=== PATIENT | male | born 1985 | race Caucasian/White ===

== ENCOUNTER 2018-03-19 19:07 | Observation (INO) | payer BC ==
--- NOTE | 2018-03-19 19:24 | EDPHY ---
H & P Stated Complaint: c/o n/v/d starting this am on waking, arrives with fever Time Seen by Provider: 03/19/18 19:23 - Medical/Surgical History Hx Asthma: No Hx Chronic Respiratory Disease: No Hx Diabetes: No Hx Cardiac Disease: No Hx Renal Disease: Yes Hx Cirrhosis: No Hx Alcoholism: No Hx HIV/AIDS: No Hx Splenectomy or Spleen Trauma: No Other PMH: polycystic kidney disease - L kidney transplant, lymphoma, ptld, hypertension, gout - Social History Smoking Status: Never smoked Constitutional: Initial Vital Signs Temperature (C) 38.2 C 03/19/18 19:15 Heart Rate 125 H 03/19/18 19:15 Respiratory Rate 16 03/19/18 19:15 Blood Pressure 99/64 L 03/19/18 19:15 O2 Sat (%) 96 03/19/18 19:15 O2 Delivery Mode Room Air Allergies/Adverse Reactions: avocado Allergy (Verified 03/19/18 19:20) Penicillins Allergy (Verified 03/19/18 19:20) Home Medications: Medication Instructions Recorded Colchicine 03/19/18 Prednisone 03/19/18 Prograf 03/19/18 Rocaltrol 03/19/18 Medical Decision Making ED Course/Re-evaluation: CHIEF COMPLAINT: Nausea, vomiting, diarrhea HISTORY OF PRESENT ILLNESS: The patient is a 32 y/o male with a history of polycystic kidney disease requiring a left kidney transplant complaining of nausea, vomiting, diarrhea onset 09:30, 10 hours ago while in [place], [place]. Since developing his symptoms he has developed a fever. He stopped vomiting around 12:30 and began drinking fluids around 13:00. However, he has not urinated for several hours and became concerned as he has a kidney transplant. Due to the dehydration he decided to present to the emergency department. He denies any nausea or abdominal pain currently. He denies missing any doses of his anti-rejection medications. No headache, chest pain, shortness of breath, abdominal pain, bowel complaints, numbness, paresthesias. REVIEW OF SYSTEMS: A 10 point review of systems was performed and is negative with the exception of the elements mentioned in the history of present illness. PHYSICAL EXAM: HR, BP, O2 Sat, RR. Temp noted General Appearance: Alert, well hydrated, appropriate, and non-toxic appearing. Head: Atraumatic without scalp tenderness or obvious injury Eyes: Pupils equal, round, reactive to light and accommodation, EOMI, no trauma , no injection. Ears: Clear bilaterally, no perforation, normal landmarks Nose: Atraumatic, no rhinorrhea, clear. Throat: There is no erythema or exudates, no lesions, normal tonsils, mucus membranes moist. Neck: Supple, 2+ carotid upstroke, nontender, no lymphadenopathy. Respiratory: No retractions, no distress, no wheezes, and no accessory muscle use. Lungs are clear to auscultation bilaterally. Cardiovascular: Regular rate and rhythm, no murmurs, rubs, or gallops. Bilateral carotid, radial, dorsalis pedis, and posterior tibial pulses intact. Good capillary refill all extremities. Gastrointestinal: Abdomen is soft, nontender, non-distended, no masses, no rebound, no guarding, no peritoneal signs. Musculoskeletal: Normal active ROM of all extremities, atraumatic. Neurological: Alert, appropriate, and interactive. The patient has normal DTRs and non-focal cranial nerves, motor, sensory, and cerebellar exam. Skin: No rashes, good turgor, no nodules on palpation. Past medical history: Polycystic kidney disease, lymphoma, hypertension, gout Past surgical history: Left kidney transplant (22 years ago) Family history: Denies Social history: at bedside, lives in [place], employed DIAGNOSTICS/PROCEDURES/CRITICAL CARE TIME: Renal US: Pending at time of admission and shift change DIFFERENTIAL DIAGNOSIS: The differential diagnosis for the patient's nausea and vomiting included but was not limited to acute kidney injury, gastroenteritis, gastritis, appendicitis , and medication side effect. MEDICAL DECISION MAKING: The patient is a 32 y/o male with a history of polycystic kidney disease requiring a left kidney transplant complaining of nausea, vomiting, diarrhea, and lack of urination onset 09:30, 10 hours ago while in [place]. Starting at 13:00 he was able to drink fluids again. He is concerned that he is too dehydrated with a history of the kidney transplant. He has a normal physical exam. Labs ordered; 2L IV NS administered. 1939: Patient's creatinine is 3.3; I reassessed patient and discussed this level. He reports that his creatinine normally runs 1.6-1.7; he was just at his neurological physiotherapist 6 weeks. ago. 1942: I consulted with Dr. Fitzpatrick, hospitalist, regarding this patient. 2044: Patient continues to feel better but he has still not urinated; repeat labs ordered. 2051: Patient's creatinine is 3.1; renal US ordered and I will consult nephrology. 2055: I consulted with Dr. Alvarado, neurological physiotherapist, regarding this patient; she agrees to follow this patient during his admission. Additional labs ordered; patient will remain on NS. 2099: Reassessed patient and discussed laboratory studies as well as plan for admission. He is comfortable with plan for admission. 2101: I consulted with the hospitalist service, Dr. Fitzpatrick accepts admission of this patient. - Data Points Laboratory Results: 03/19/18 03/19/18 20:51 19:38 POC Hgb 13.9 gm/dL gm/dL 17.0 gm/dL gm/dL (13.7-17.5) (13.7-17.5) POC Hct 41 % % 50 % % (40-51) (40-51) POC Sodium 140 mEq/L mEq/L 139 mEq/L mEq/L (135-145) (135-145) POC Potassium 4.8 mEq/L mEq/L 4.8 mEq/L mEq/L (3.3-5.0) (3.3-5.0) POC Chloride 108 mEq/L mEq/L 106 mEq/L mEq/L (97-110) (97-110) POC BUN 31 mg/dL H mg/dL 34 mg/dL H mg/dL (7-23) (7-23) POC Creatinine 3.1 mg/dL H mg/dL 3.3 mg/dL H mg/dL (0.7-1.3) (0.7-1.3) POC Glucose 123 mg/dL H mg/dL 138 mg/dL H mg/dL (70-100) (70-100) Medications Given: Discontinued Medications Sodium Chloride (Ns) 1,000 mls @ 0 mls/hr IV EDNOW ONE; Wide Open PRN Reason: Protocol Stop: 03/19/18 19:34 Last Admin: 03/19/18 19:37 Dose: 1,000 mls Sodium Chloride (Ns) 1,000 mls @ 0 mls/hr IV EDNOW ONE; Wide Open PRN Reason: Protocol Stop: 03/19/18 19:34 Last Admin: 03/19/18 19:38 Dose: 1,000 mls Point of Care Test Results: Chemistry 03/19/18 03/19/18 20:51 19:38 POC Sodium 140 mEq/L mEq/L 139 mEq/L mEq/L (135-145) (135-145) POC Potassium 4.8 mEq/L mEq/L 4.8 mEq/L mEq/L (3.3-5.0) (3.3-5.0) POC Chloride 108 mEq/L mEq/L 106 mEq/L mEq/L (97-110) (97-110) POC BUN 31 mg/dL H mg/dL 34 mg/dL H mg/dL (7-23) (7-23) POC Creatinine 3.1 mg/dL H mg/dL 3.3 mg/dL H mg/dL (0.7-1.3) (0.7-1.3) POC Glucose 123 mg/dL H mg/dL 138 mg/dL H mg/dL (70-100) (70-100) ISTAT H&H 03/19/18 03/19/18 20:51 19:38 POC Hgb 13.9 gm/dL gm/dL 17.0 gm/dL gm/dL (13.7-17.5) (13.7-17.5) POC Hct 41 % % 50 % % (40-51) (40-51) Departure - Departure Disposition: [facility] Inpatient Acute Clinical Impression: Acute kidney injury, Dehydration Condition: Fair Referrals: NONE *PRIMARY CARE P,. [Primary Care Provider] - As per Instructions Report Scribed for: Rajesh Jasso Report Scribed by: Edith Chan Date of Report: 03/19/18 Time of Report: 19:45
--- NOTE | 2018-03-19 19:25 | EDPHY ---
H & P Stated Complaint: c/o n/v/d starting this am on waking, arrives with fever Time Seen by Provider: 03/19/18 19:23 - Medical/Surgical History Hx Asthma: No Hx Chronic Respiratory Disease: No Hx Diabetes: No Hx Cardiac Disease: No Hx Renal Disease: Yes Hx Cirrhosis: No Hx Alcoholism: No Hx HIV/AIDS: No Hx Splenectomy or Spleen Trauma: No Other PMH: polycystic kidney disease - L kidney transplant, lymphoma, ptld, hypertension, gout - Social History Smoking Status: Never smoked Constitutional: Initial Vital Signs Temperature (C) 38.2 C 03/19/18 19:15 Heart Rate 125 H 03/19/18 19:15 Respiratory Rate 16 03/19/18 19:15 Blood Pressure 99/64 L 03/19/18 19:15 O2 Sat (%) 96 03/19/18 19:15 O2 Delivery Mode Room Air Allergies/Adverse Reactions: avocado Allergy (Verified 03/19/18 19:20) Penicillins Allergy (Verified 03/19/18 19:20) Home Medications: Medication Instructions Recorded Colchicine 03/19/18 Prednisone 03/19/18 Prograf 03/19/18 Rocaltrol 03/19/18 Medical Decision Making ED Course/Re-evaluation: CHIEF COMPLAINT: HISTORY OF PRESENT ILLNESS: must have 4 elements: Location, Quality, Severity , Duration, Timing, Context, Modifying Factors, Associated Signs and Symptoms REVIEW OF SYSTEMS: A comprehensive 10 system review of systems is otherwise negative aside from elements mentioned in the history of present illness and medical decision making. PHYSICAL EXAM: HR, BP, O2 Sat, RR. Temp noted General Appearance: Alert, well hydrated, appropriate, and non-toxic appearing. Head: Atraumatic without scalp tenderness or obvious injury Eyes: Pupils equal, round, reactive to light and accommodation, EOMI, no trauma , no injection. Ears: Clear bilaterally, no perforation, normal landmarks Nose: Atraumatic, no rhinorrhea, clear. Throat: There is no erythema or exudates, no lesions, normal tonsils, mucus membranes moist. Neck: Supple, 2+ carotid upstroke, nontender, no lymphadenopathy. Respiratory: No retractions, no distress, no wheezes, and no accessory muscle use. Lungs are clear to auscultation bilaterally. Cardiovascular: Regular rate and rhythm, no murmurs, rubs, or gallops. Bilateral carotid, radial, dorsalis pedis, and posterior tibial pulses intact. Good capillary refill all extremities. Gastrointestinal: Abdomen is soft, nontender, non-distended, no masses, no rebound, no guarding, no peritoneal signs. Musculoskeletal: Normal active ROM of all extremities, atraumatic. Neurological: Alert, appropriate, and interactive. The patient has normal DTRs and non-focal cranial nerves, motor, sensory, and cerebellar exam. Skin: No rashes, good turgor, no nodules on palpation. Past medical history: Past surgical history: Family history: Social history: DIAGNOSTICS/PROCEDURES/CRITICAL CARE TIME: DIFFERENTIAL DIAGNOSIS: MEDICAL DECISION MAKING: Departure - Departure Referrals: NONE *PRIMARY CARE P,. [Primary Care Provider] - As per Instructions
[2018-03-19] MEDS ORDERED: NS 1,000 ML IV ONE ×2 (19:33)
[2018-03-19 21:09] LABS: PLATELET COUNT 273 10^3/uL (150-400)
[2018-03-19] MEDS ORDERED: ONDANSETRON 4 MG/2 ML VIAL IVP PRN (21:41)
[2018-03-19] MEDS ORDERED: ONDANSETRON DISINTEGRATING 4 MG TAB PO PRN (21:41)
[2018-03-19] MEDS ORDERED: ACETAMINOPHEN 325 MG TAB PO PRN (21:41)
[2018-03-19] MEDS ORDERED: NS 1,000 ML IV SCH (21:45)
--- NOTE | 2018-03-19 21:57 | HOSPPROG ---
Hospitalist Progress Note Assessment/Plan: patient does not take antihypertensives rocaltrol is a vit d analog dictation in error Objective: Vital Signs Temp Pulse Resp BP Pulse Ox 36.9 C 104 H 14 113/74 96 03/19/18 21:51 03/19/18 21:51 03/19/18 21:51 03/19/18 21:51 03/19/18 21:51 03/18/18 03/19/18 03/20/18 05:59 05:59 05:59 Intake Total 1999 Balance 1999 ICD10 Worksheet Patient Problems: Problems Problem Status Onset Acute kidney injury Acute Dehydration Acute
--- NOTE | 2018-03-19 22:29 | GHP ---
DATE OF ADMISSION: 03/19/2018 HISTORY OF PRESENT ILLNESS: Mr. Gruber is a 32-year-old gentleman with a history of renal transplan t at age 10 secondary to polycystic kidneys, who presents with no urine in several hours. He lives i [facility], he was visiting [place]. He has been eating and drinking well. He developed di arrhea and vomiting this morning. He presented for care because of no urination about 8 hours, found have a BUN and creatinine of 36 and 3.1. His baseline is about 1.4, this was last checked about 6 w eeks ago. He does not take NSAIDs. He is taking no [id number]-[id number] cold and flu medicines. He julia es tacrolimus and prednisone for antirejection drugs and he has not missed doses. His blood pressure is not markedly elevated; in fact, it is a little bit low when he gets here. He does take Rocaltrol for blood pressure control. REVIEW OF SYSTEMS: Complete 10-point review of systems conducted, negative except as noted in the HP I. PAST MEDICAL HISTORY: Polycystic kidney disease, kidney transplant, hypertension, and gout. ALLERGIES: Avocado and penicillin. MEDICATION LIST: Colchicine, prednisone, Prograf, Rocaltrol. SOCIAL HISTORY: He is from [place]. He does not smoke cigarettes, is not a heavy drinker, prese nt with his girlfriend. FAMILY HISTORY: Reviewed and unremarkable. PHYSICAL EXAM: PRESENTING VITAL SIGNS: Temp 38, blood pressure 99/64, pulse 125, now 99, breathing 16 times a minute, 96% on room air. GENERAL: No acute distress sclerae are anicteric. Oropharynx i s clear. Mucous membranes are moist. NECK: Supple, without lymphadenopathy or JVD. LUNGS: Clear to auscultation bilaterally. HEART: S1, S2. ABDOMEN: Soft, nontender, nondistended. LOWER EXTREM ITIES: No edema. The calves are nontender. SKIN: Without rash. NEUROLOGIC: Exam is nonfocal. His kidney transplant at the left lower quadrant is not warm or tender. LABORATORY DATA: Sodium 136, potassium 5.1, chloride 104, bicarb 19, BUN 36, creatinine 3.1. After hydration it was essentially unchanged. There is no imaging. I have discussed the case Dr. Francisco J Jasso. ASSESSMENT AND PLAN: A 32-year-old man with acute kidney injury with chronic kidney disease and joanna l transplant. 1. Acute kidney injury. This is almost certainly secondary to a prerenal state, given his vomiting and diarrhea. That said, the rise in creatinine is a little greater than expected; renal ultrasound is ordered and pending. We will send a tacrolimus level. I have a low risk for toxicity. We will h ydrate gently overnight. He will be seen by Renal in consult in the morning. We will continue his i mmunosuppressives. 2. Fever. This is likely secondary to intermittent viral gastroenteritis. Will follow. Will send a gastrointestinal pathogen panel. 3. Leukocytosis. Again, this is likely secondary to intercurrent infection. 4. Hypertension. We will hold his antihypertensives. Maximize renal perfusion. DISPOSITION: Observation status. /[id number]/MODL
--- NOTE | 2018-03-20 07:34 | SOAPPROG ---
[facility] Progress Note Assessment/Plan: Assessment: renal consult See dictation # [id number] pager [phone] Objective: Vital Signs Temp Pulse Resp BP Pulse Ox 36.5 C 84 14 119/72 94 03/20/18 04:24 03/20/18 04:24 03/20/18 04:24 03/20/18 04:24 03/20/18 04:24 Laboratory Results 03/20/18 03:58 03/19/18 03/20/18 03/21/18 05:59 05:59 05:59 Intake Total 3500 Output Total 600 Balance 2900 ICD10 Worksheet Patient Problems: Problems Problem Status Onset Acute kidney injury Acute Dehydration Acute
[2018-03-20 08:17] VITALS: BP 125/87
[2018-03-20] MEDS ORDERED: TACROLIMUS 1 MG CAP PO SCH (08:30)
[2018-03-20] MEDS ORDERED: predniSONE 1 MG TAB PO SCH (09:00)
[2018-03-20] MEDS ORDERED: CALCITRIOL 0.25 MCG CAP PO SCH (09:00)
--- NOTE | 2018-03-20 09:11 | GCON ---
INPATIENT NEPHROLOGY CONSULTATION. DATE OF CONSULTATION: 03/20/2018 REFERRING PHYSICIAN: Rajesh Jasso MD REASON FOR CONSULTATION: Acute kidney injury, renal transplant patient. HISTORY OF THE PRESENT ILLNESS: The patient is a very pleasant 32-year-old man who is status post a living related kidney transplant 23 years ago at the age of 10 secondary to polycystic kidneys. He n ormally lives in [place] and is here visiting family and was up in [place]. He began feeling poorly late Monday evening with severe nausea, vomiting and diarrhea. No fevers, no blood in the stool. Diana pantoja was having difficulty holding any fluids down and thus came to the emergency room. His creatinine on arrival was 3.1. He denies missing any doses of his immunosuppression other than 1 dose yesterday due to the severe nausea and vomiting. He reports his baseline creatinine was 1.36 based on lab gris t he just had recently with his circular head saw operator in [place]. He has not had any trouble with projecti on. He received his kidney from his father 23 years ago. He is currently on Prograf 4 mg p.o. b.i.d . and prednisone 8 mg every other day. He is not on Myfortic. 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 He also had an episode of shingles. He reports that his blood pressure is us ually well controlled on amlodipine. He is feeling much better this morning. He received IV fluids overnight. He underwent a renal ultrasound that was negative for any hydronephrosis. His creatinine is improved to 2.2. He made 600 cc of urine as well as 1 void that was not recorded. He has not wolf d any fevers overnight and his blood pressures have been running 110s to 120s. He did not have any f angelita. He is wanting to try breakfast. His girlfriend was in the room while I was examining him and noted that she was having a new onset nausea, vomiting and diarrhea this morning as well. REVIEW OF SYSTEMS: GENERAL: No fevers. He had generalized malaise with poor oral intake. HEENT: No sore throat. PULMONARY: No shortness of breath or cough. CARDIAC: No chest pain. No lower ext remity edema. GI: He had severe nausea and vomiting. Nonbloody emesis and nonbloody diarrhea. No abdominal pain. : He noted decreased urine output. No difficulty urinating. No hematuria no dys uria. No flank pain. SKIN: No rash. NEUROLOGIC: No loss of consciousness. No tremor. ENDOCRINE : No history of diabetes. No polyuria or polydipsia. HEME: No bleeding. He does have a history o f PTLD over 10 years ago related to his transplant. PAST MEDICAL HISTORY: 1. Status post living related kidney transplant 23 years ago at the age of 10. His kidney was from his father. He has underlying polycystic kidneys but no other family members have polycystic kidney disease. He has not had any complications of rejection. His transplant was done at [facility]. He is followed by Nephrology in [place]. His last creatinine was 1.36 on labs recent ly. He is currently on Prograf and prednisone. His course has been complicated by EBV as well as PT LD and shingles. 2. Hypertension. 3. 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 He did require chemo approximately 10 y ears ago. 4. Gout. SOCIAL HISTORY: He is from [place]. He is visiting his girlfriend's family here in [place]. D enies tobacco or drugs. Uses alcohol on social occasions. FAMILY HISTORY: No family members have any kidney disease. No acute polycystic kidney disease. CURRENT MEDICATIONS: Include Tylenol p.r.n., calcitriol 0.25 mcg p.o. daily, Zofran p.r.n., predniso ne 8 mg every other day, IV normal saline 125 cc an hour and Prograf 4 mg p.o. b.i.d. PHYSICAL EXAMINATION: VITAL SIGNS: His temperature is 36.6, blood pressure is 125/87, heart rate 86 , saturating 97% on room air. GENERAL: He is nontoxic appearing. Pleasant. No acute distress. Si tting upright in bed comfortably. HEENT: Mucous membranes moist. No scleral icterus. NECK: Suppl e. LUNGS: His lungs are clear to auscultation bilaterally. CARDIOVASCULAR: Regular rate and rhyth m. No murmurs, rubs. ABDOMEN: Soft, nontender. No tenderness over his left lower quadrant renal a llograft. BACK: No CVA tenderness. EXTREMITIES: No edema. Warm and well perfused. SKIN: No obv ious rash. NEUROLOGIC: Alert and oriented x3. No tremor. LABS: Sodium 137, potassium 4.3, chloride 109, bicarbonate 19, BUN 32, creatinine 2.2. Glucose 90, calcium 8.5. His urinalysis showed 1+ blood, 2+ protein, trace bacteria. White blood cell count was 17.8, hemoglobin 16.1, hematocrit 46.7, platelets 273. Prograf level is pending. His renal ultrasound was negative for any hydronephrosis. There was no significant postvoid residual . No perinephric fluid collection was noted. No obvious stenosis in the vasculature. ASSESSMENT AND PLAN: The patient is a pleasant 32-year-old man with a history of a living renal martínez splant 23 years ago and hypertension, who now presents with severe nausea, vomiting, diarrhea and acu te kidney injury: Acute kidney injury on top of chronic kidney disease in the setting of a renal transplant patient. H e appears to be prerenal in etiology given his severe GI symptoms and improvement in his renal functi on with IV fluids. Suspect he likely has a viral gastroenteritis given his acute onset of symptoms o f nausea, vomiting and diarrhea. I would continue to hydrate as you are. Rejection seems unlikely g iven that he has not missed any doses and his creatinine is improving with IV fluids. He does have s ome mild hematuria and proteinuria on urinalysis and I have asked him to follow up with his nephrolog ist when he gets back to [place] tomorrow. I would ensure that he is able to take oral intake wel l and is able to remain hydrated before discharging him, but [facility] significant improvement in symptoms. I would continue his current immunosuppression gayatri men of tacrolimus 4 mg p.o. b.i.d. and prednisone 80 mg every other day. I would continue to hold hi s amlodipine at this point, given his blood pressure was a little bit low on presentation. I have gi fidelia him a copy of my card and asked to have his circular head saw operator call me if there is any question. I marco antonio pantoja also asked him to get blood work done on when he returns to [place]. Unfortunately his girlfriend was developing symptoms while I was in the room and suspect this is likely [place] virus and that she also may have significant symptoms. I discussed my recommendations with the hospitalist and the RN. Thank you for consulting us. Please do not hesitate to call with any questions. /[id number]/MODL
--- NOTE | 2018-03-20 16:29 | PDDCSUM ---
Discharge Summary Discharge Summary: Date of Admission: 03/19/2018 Date of Discharge: 03/20/2018 Consultants: nephrology Discharge Diagnoses: 1. Acute kidney injury on CKD in setting of renal transplant 2. Dehydration 2/2 norovirus GI infection 3. Hypertension Brief Hospital Course: 32yo M with history of kidney transplant on immunosuppression (tacrolimus, prednisone) who is visiting [place] from [place] for the holidays presents with several days of diarrhea and vomiting. He was found to have norovirus on GI PCR. His symptoms essentially resolved prior to discharge with supportive care. He did have an ELLIS and due to his h/o transplant, nephrology was consulted. His creatinine improved from 3.5 to 2.2 with IVF. His anti-rejection meds (tac 4 BID, pre 80 every other day) were continued. We did instruct him to hold his amlodipine and to get a BMP checked in 2 days when he [facility]. Medications: Please refer to EMR. No prescriptions were given. Follow Up Plan: 1. Return to area operations manager in [place], obtain BMP 2. Monitor BP and restart amlodipine as needed Physical Exam: Vitals reviewed, afebrile and normotensive. Alert and oriented, rrr without m/r/g, lungs clear, abdomen soft and nt, no rashes or edema.
== END 2018-03-20 12:02 | disposition home or self-care (01) ==
LOC: F1N 21:49
PROVIDERS: ADMIT Internal Medicine; ATTEND Internal Medicine
DX: N17.9 Acute kidney failure, unspecified (principal); E86.0 Dehydration; A08.11 Acute gastroenteropathy due to Norwalk agent; D72.829 Elevated white blood cell count, unspecified; N18.9 Chronic kidney disease, unspecified; Q61.3 Polycystic kidney, unspecified; M10.9 Gout, unspecified; Z79.899 Other long term (current) drug therapy; Z79.52 Long term (current) use of systemic steroids; Z85.72 Personal history of non-Hodgkin lymphomas; Z86.19 Personal history of other infectious and parasitic diseases; Z92.21 Personal history of antineoplastic chemotherapy; Z94.0 Kidney transplant status; Z88.0 Allergy status to penicillin
CPT/HCPCS: 76770; 96360; 99285; G0378; 80197-90; 82435-PO; 82565-PO; 82947-PO; 84132-PO; 84295-PO; 84520-PO; 85014-PO; J7507; J7512